=== PATIENT | female | born 1995 | race Two or more races ===

== ENCOUNTER 2021-07-04 09:19 | Emergency (ER) | payer MEDICAID, OTHER ==
[~2021-07-04] VITALS: Ht 165.1 cm; Wt 83.5 kg
[2021-07-04 09:36] VITALS: BP 133/16
[2021-07-04] MEDS ORDERED: ACETAMINOPHEN 500 MG TAB PO ONE (10:00)
[2021-07-04] MEDS ORDERED: IBUP600T27 PO (11:22)
== END 2021-07-04 11:24 | disposition home or self-care (01) ==
LOC: EDBD 09:19 → ER 09:19
DX: S00.03XA Contusion of scalp, initial encounter (principal); S80.11XA Contusion of right lower leg, initial encounter; Z79.1 Long term (current) use of non-steroidal anti-inflammatories (NSAID); V43.62XA Car passenger injured in collision with other type car in traffic accident, initial encounter; Y93.89 Activity, other specified; Y92.410 Unspecified street and highway as the place of occurrence of the external cause; Y99.8 Other external cause status
CPT/HCPCS: 70450; 73590